=== PATIENT | female | born 2000 | race Caucasian/White ===

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

== ENCOUNTER 2020-12-18 19:27 | Emergency (ER) | payer OTHER ==
[~2020-12-18] VITALS: Ht 165.1 cm; Wt 62.6 kg
[2020-12-18 19:32] VITALS: BP 143/76
[2020-12-18 21:17] VITALS: BP 110/80
== END 2020-12-18 21:17 | disposition home or self-care (01) ==
LOC: MED 19:27
DX: F41.9 Anxiety disorder, unspecified (principal); R07.89 Other chest pain
CPT/HCPCS: 81025; 93005; 99283